=== PATIENT | male | born 1955 | race Caucasian/White ===

== ENCOUNTER 2016-06-13 22:36 | Inpatient (IN) | payer BC ==
[~2016-06-13] VITALS: Ht 182.9 cm; Wt 78.0 kg
[~2016-06-13 22:36] MED LIST: ACETAMINOPHEN-1 EAC1 ORAL; ACYCLOVIR400 MG ORAL; COUMADIN5 MG ORAL
[2016-06-13 22:55] VITALS: BP 148/62
[2016-06-13] MEDS ORDERED: Aspirin Baby 81mg ORAL ONE (23:15)
[2016-06-13] MEDS ORDERED: Ketorolac 30mg Inj IV ONE (23:15)
[2016-06-13 23:18] LABS: BASOPHILS % (AUTO) 1.4 % (0.0-2.0); EOSINOPHILS % (AUTO) 1.3 % (0.0-3.0); LYMPHOCYTES % (AUTO) 16.8 % (20.0-45.0); MEAN CORPUSCULAR HEMOGLOBIN 27.8 PG (27.0-31.0); MEAN CORPUSCULAR HGB CONC 31.8 G/DL (32.0-36.0); MEAN CORPUSCULAR VOLUME 88 FL (80-99); MEAN PLATELET VOLUME 7.7 FL (6.5-10.1); MONOCYTES % (AUTO) 19.7 % (1.0-10.0); NEUTROPHILS % (AUTO) 60.8 % (45.0-75.0); PLATELET COUNT 125 K/UL (150-450); RED BLOOD COUNT 4.28 M/UL (4.70-6.10); RED CELL DISTRIBUTION WIDTH 13.6 % (11.6-14.8); WHITE BLOOD COUNT 9.7 K/UL (4.8-10.8)
--- NOTE | 2016-06-13 23:27 | Emergency Room Report ---
History of Present Illness General Chief Complaint: Chest Pain Source: Patient Present Illness HPI This is a 60-year-old male with history of asthma. He presents with chief complaint of left-sided chest pain is been intermittent since Friday. Localized to the lateral left chest area. Radiate to the back. Is sharp and lancing in nature. It comes and goes. Initially described as tingling and burning. Now lancing. No trauma. Nothing made it better nothing made it worse. Denies any other complaint. Pain is 10 out of 10 when the pain comes on. Allergies: Coded Allergies: ACETAMINOPHEN (Verified Allergy, Severe, 04/28/13) n/v OXYCODONE (Verified Allergy, Severe, 04/28/13) n/v Patient History Past Medical History: see triage record, old chart reviewed, asthma Past Surgical History: none Pertinent Family History: none Social History: Denies: smoking Immunizations: other Reviewed Nursing Documentation: PMH: Agreed, PSxH: Agreed Nursing Documentation-PMH Hx Asthma: Yes Hx Cancer: Yes - left foot sarcoma Review of Systems Eye: Denies: blurred vision, eye pain ENT: Denies: ear pain, nose congestion, throat swelling Respiratory: Denies: cough, shortness of breath Cardiovascular: Reports: chest pain, Denies: palpitations Gastrointestinal: Denies: abdominal pain, diarrhea, nausea, vomiting Musculoskeletal: Denies: back pain, joint pain Skin: Denies: rash Neurological: Denies: headache, numbness Endocrine: Denies: increased thirst, increased urine Hematologic/Lymphatic: Denies: easy bruising All Other Systems: negative except mentioned in HPI Physical Exam Vital Signs Date Time Temp Pulse Resp B/P Pulse Ox O2 Delivery O2 Flow Rate FiO2 06/13/16 22:45 99.0 81 18 156/72 97 Room Air vitals with hypertension Sp02 EP Interpretation: reviewed, normal General Appearance: well appearing, no apparent distress, alert Head: normocephalic, atraumatic Eyes: bilateral eye EOMI, bilateral eye PERRL ENT: hearing grossly normal, normal pharynx Neck: full range of motion, supple, no meningismus Respiratory: chest non-tender, lungs clear, normal breath sounds, other - No rash Cardiovascular #1: regular rate, rhythm, no murmur Gastrointestinal: normal bowel sounds, non tender, no mass, no organomegaly, no bruit, non-distended Musculoskeletal: back normal, gait/station normal, normal range of motion Psychiatric: mood/affect normal Skin: warm/dry Medical Decision Making Diagnostic Impression: Primary Impression: Pulmonary embolism Qualified Codes: I26.99 - Other pulmonary embolism without acute cor pulmonale Additional Impression: Acute kidney injury (nontraumatic) ER Course Patient present with chest pain. He has a pulmonary embolism. Anticoagulations started with Lovenox. He has a history of postsurgical DVT. He was on Coumadin for one and a half year. It was stopped. He has no recent travel, surgery or immobilization. Denies any leg pain or swelling. Will admit for anticoagulations and further workup. EKG Diagnostic Results Rate: normal Rhythm: NSR ST Segments: no acute changes Rhythm Strip Diag. Results EP Interpretation: yes Rate: 75 Rhythm: NSR, no PVC's, no ectopy Chest X-Ray Diagnostic Results EP Interpretation: Yes Findings: no effusion, no pneumothorax, other - Left lower lobe infiltrate Number of Views: 1 CT/MRI/US Diagnostic Results CT/MRI/US Diagnostic Results : Imaging Test Ordered: CT chest Impression Red by radiologist. Positive for PE in the left lower lobe and lingula area. Last Vital Signs Date Time Temp Pulse Resp B/P Pulse Ox O2 Delivery O2 Flow Rate FiO2 06/13/16 22:55 98.5 80 17 148/62 97 Room Air Status: improved Disposition: ADMITTED INPATIENT Condition: Serious HUBERT MCCORD M.D. Jun 13, 2016 23:27
[2016-06-13 23:35] LABS: TROPONIN I < 0.30 ng/mL (<=0.30)
[2016-06-13 23:39] LABS: ALANINE AMINOTRANSFERASE 23 U/L (3-41); ALBUMIN/GLOBULIN RATIO 1.2 (1.0-2.7); ANION GAP 17 (5-15); ASPARTATE AMINO TRANSFERASE 26 U/L (5-40); CALCIUM 8.9 mg/dL (8.6-10.2); CARBON DIOXIDE 25 mEQ/L (20-30); CHLORIDE 96 mEQ/L (98-107); CREATININE 1.5 mg/dL (0.7-1.2); GLOMERULAR FILTRATION RATE 47.4 mL/min (>60); HEMOLYSIS 4; POTASSIUM 4.4 mEQ/L (3.4-4.9); SODIUM 138 mEQ/L (135-145); TOTAL PROTEIN 7.2 g/dL (6.6-8.7)
[2016-06-13 23:49] LABS: CKMB < 1.5 ng/mL (< 6.7)
[2016-06-13 23:55] VITALS: BP 102/59
[2016-06-14] VITALS (8 sets, daily range): BP systolic 109–140; BP diastolic 64–76
[2016-06-14] MEDS ORDERED: Enoxaparin 80mg Inj SUBQ ONE (01:00)
[2016-06-14] MEDS ORDERED: SINGULAIR10 MG ORAL (01:42)
[2016-06-14] MEDS ORDERED: ASPIRIN81 MG ORAL (01:42)
[2016-06-14] MEDS ORDERED: traMADol 50mg tab ORAL PRN (03:30)
[2016-06-14] MEDS ORDERED: Heparin 25,000u/D5W 500ml 500 ML IV SCH ×3 (03:45→22:15)
[2016-06-14] MEDS ORDERED: Heparin 5000 units/ml inj IV ONE ×2 (03:45→22:00)
[2016-06-14 04:10] LABS: BASOPHILS % (AUTO) 1.2 % (0.0-2.0); EOSINOPHILS % (AUTO) 0.7 % (0.0-3.0); LYMPHOCYTES % (AUTO) 18.5 % (20.0-45.0); MEAN CORPUSCULAR HEMOGLOBIN 27.6 PG (27.0-31.0); MEAN CORPUSCULAR HGB CONC 32.7 G/DL (32.0-36.0); MEAN CORPUSCULAR VOLUME 85 FL (80-99); MEAN PLATELET VOLUME 7.3 FL (6.5-10.1); MONOCYTES % (AUTO) 18.2 % (1.0-10.0); NEUTROPHILS % (AUTO) 61.4 % (45.0-75.0); PLATELET COUNT 114 K/UL (150-450); RED BLOOD COUNT 3.87 M/UL (4.70-6.10); RED CELL DISTRIBUTION WIDTH 13.3 % (11.6-14.8); WHITE BLOOD COUNT 8.5 K/UL (4.8-10.8)
--- NOTE | 2016-06-14 09:57 | Diagnostic Imaging Report ---
Indication: Chest pain Technique: Continuous helical transaxial imaging of the chest was obtained from the thoracic inlet to the upper abdomen during rapid intravenous contrast administration. Arterial phase of enhancement obtained. Coronal 2-D reformats were also obtained and maximum intensity projection images in multiple planes. Study obtained in a Siemens sensation [address] Total Dose length Product (DLP): [address] Dose Index Volume (CTDIvol): 13, 51, 23 mGy Comparison: None Findings: There is a filling defect involving the left lower lobe pulmonary artery branch as well as the lingula branch consistent with pulmonary embolus. Nonspecific patchy groundglass opacification of a portion of the lingula as well as left lower lobe are noted. There are some associated volume loss despite a small left pleural effusion. Some of the parenchymal opacification is due to atelectasis. Pulmonary infarction is not excluded. Small mediastinal nodes are present. Heart is unremarkable. Aorta is normal in appearance. The visualized part of the upper abdomen demonstrates an enlarged spleen. There is a hypodensity in the right lobe of the liver measuring about 1 cm nonspecific. There is a large partially enhancing hypodense mass in the right lobe of the liver measuring approximately 3.8 x 3.0 CM. This may be a hemangioma but is incompletely assessed on the current study. Within the mid and lower thoracic spine there is partial ossification of the anterior longitudinal ligament. Impression: Positive exam for pulmonary embolus involving the lingula branch and left lower lobe branches. Patchy left basilar atelectasis and a small pleural effusion. Additional groundglass opacities are nonspecific with a differential diagnosis including pulmonary infarction. Splenomegaly. 3.8 x 3.0 cm partially enhancing mass in the liver, nonspecific. This could be a hemangioma. 1 cm hypodensity in the liver nonspecific. [facility] has communicated the preliminary results to the Emergency Department. Their findings are largely concordant with this report. Critical value communication. Findings were discussed via telephone with Dr. Romero in the emergency department by [facility] physician Dr. Eamon Johnson at 06/14/16, 01:00 [facility] has communicated the preliminary results to the Emergency Department. Their findings are largely concordant with this report. The CT scanner at [facility] is accredited by the [employer] and the scans are performed using protocols designed to limit radiation exposure to as low as reasonably achievable to attain images of sufficient resolution adequate for diagnostic evaluation.
--- NOTE | 2016-06-14 11:09 | Diagnostic Imaging Report ---
Indication: Chest Pain Comparison: None A single view chest radiograph was obtained. Findings: Retrocardiac infiltrate and/or pleural effusion noted. Mild cardiomegaly is present without evidence of CHF. Right clavicle hardware noted. Impression: Left basilar pleural effusion and/or atelectasis/pneumonia.
[2016-06-14] MEDS ORDERED: HYDROmorphone 1mg/ml Carpuject IVP PRN ×2 (15:00→15:06)
[2016-06-14] MEDS ORDERED: Tylenol #3 tab (300mg/30mg) ORAL PRN (15:15)
[2016-06-14] MEDS ORDERED: Montelukast 10mg tablet ORAL SCH (16:30)
--- NOTE | 2016-06-14 23:38 | History and Physical Report ---
DATE OF ADMISSION: 06/14/2016 CHIEF COMPLAINT: Chest pain and pulmonary embolism. HISTORY OF PRESENT ILLNESS: The patient is a pleasant 60-year-old male. He has prior history of left lower extremity DVT approximately 10 years ago. He required a stent placement at that time, he was initially on Coumadin for over a year and then switched to baby aspirin. He has been doing well until Friday when he developed substernal chest pain on the left side. The pain persisted and it became severe and he developed worsening shortness of breath and presented to the emergency room. On evaluation there, CT pulmonary angio confirmed a pulmonary embolism in lingular branch of the left lower lobe. The patient has been started on heparin drip. He is now admitted. He denies any fever or chills. He did recently travel to [place] at end of May. He also has a brother who has a history of DVT after surgery. PAST MEDICAL HISTORY: Asthma. PAST SURGICAL HISTORY: Includes surgery, tonsillectomy, and foot surgery. CURRENT MEDICATIONS: Reconciled and reviewed. ALLERGIES: Oxycodone. SOCIAL HISTORY: Negative for tobacco, ethanol, or drugs. FAMILY HISTORY: Noncontributory. REVIEW OF SYSTEMS: General: No fevers or chills. HEENT: No headaches or visual changes. Cardiopulmonary: Positive chest pain and shortness of breath. Gastrointestinal: No nausea or vomiting Genitourinary: No urgency or frequency. Musculoskeletal: No joint pain or swelling. Neurologic: No evidence of seizures. PHYSICAL EXAMINATION: VITAL SIGNS: Temperature 98 degrees, blood pressure 130/76, pulse 80, respirations 20, and the patient is saturating 100% on two liters. GENERAL: The patient is well-developed male, in no apparent distress. HEART: Regular rate and rhythm. LUNGS: Clear. ABDOMEN: Soft, nontender, and nondistended. EXTREMITIES: Without clubbing, cyanosis, or edema. LABORATORY AND DIAGNOSTIC DATA: White count was 9, hemoglobin 11, hematocrit 37, and platelets of 125,000. D-dimer was 20,000. Sodium 138, potassium 4.4, chloride 96, bicarb 25, BUN 29, and creatinine 1.5 with glucose of 138. [address] pulmonary angio shows pulmonary embolism involving lingular branch of the left lower lobe, patchy left basilar atelectasis, and small pleural effusion, additional ground-glass opacities, nonspecific but differential includes pulmonary infarction. ASSESSMENT: This is a pleasant male with prior history of deep venous thrombosis associated with surgery admitted with a pulmonary embolism. 1. Pulmonary embolism. 2. Pain secondary to pulmonary embolism. 3. Respiratory insufficiency. 4. History of asthma. PLAN: 1. Heparin drip. 2. and pulmonary consultation. 3. Pain control. 4. Check a duplex of the legs. Hossein Beasley M.D. DR: Peggy JOB#: [id number] CC:
[2016-06-15] VITALS: BP 129/70
[2016-06-15] MEDS: Morphine Sulfate 2mg/ml Inj IVP PRN ×2 (00:01→08:08)
[2016-06-15 07:43] VITALS: BP 140/71
[2016-06-15] MEDS: Montelukast 10mg tablet ORAL SCH (08:09)
[2016-06-15] MEDS ORDERED: Milk of Magnesia 30ml Ud ORAL PRN (09:30)
[2016-06-15] MEDS: Docusate 250mg cap ORAL SCH ×2 (09:34→17:27)
--- NOTE | 2016-06-15 09:42 | General Progress Note ---
Assessment/Plan Problem List: (1) Asthma ICD Codes: J45.909 - Unspecified asthma, uncomplicated SNOMED: 448964354 (2) Pulmonary infarction ICD Codes: I26.99 - Other pulmonary embolism without acute cor pulmonale SNOMED: 85036280 (3) Pulmonary embolism ICD Codes: I26.99 - Other pulmonary embolism without acute cor pulmonale SNOMED: 67635064, [id number] Qualifiers: Qualified Codes: I26.99 - Other pulmonary embolism without acute cor pulmonale Status: stable, progressing Assessment/Plan start xarelto dc heparin drip pulm and heme eval check factor 5 decongestants Subjective ROS Limited/Unobtainable: No Constitutional: Reports: malaise, weakness HEENT: Reports: no symptoms Cardiovascular: Reports: no symptoms Respiratory: Reports: no symptoms Gastrointestinal/Abdominal: Reports: no symptoms Genitourinary: Reports: no symptoms Neurologic/Psychiatric: Reports: no symptoms Endocrine: Reports: no symptoms Hematologic/Lymphatic: Reports: no symptoms Allergies: Coded Allergies: ACETAMINOPHEN (Verified Allergy, Severe, 04/28/13) n/v OXYCODONE (Verified Allergy, Severe, 04/28/13) n/v All Systems: reviewed and negative except above Subjective c/o chest pain +sob. no bleeding stuffed up nose. . Objective Last 24 Hour Vital Signs Date Time Temp Pulse Resp B/P Pulse Ox O2 Delivery O2 Flow Rate FiO2 06/15/16 07:43 99.0 72 20 140/71 94 Nasal Cannula 2.0 06/15/16 04:00 66 06/15/16 00:00 98.2 72 16 129/70 98 Nasal Cannula 2.0 06/15/16 00:00 74 06/14/16 20:00 82 06/14/16 20:00 97.8 70 19 140/76 100 Nasal Cannula 2.0 06/14/16 16:00 53 06/14/16 16:00 97.5 56 20 128/70 96 Nasal Cannula 2.0 06/14/16 15:39 98.1 06/14/16 12:00 98.1 59 20 120/68 97 Nasal Cannula 1.5 06/14/16 12:00 56 Intake and Output 06/14/16 06/15/16 19:00 07:00 Intake Total 756.056 ml 642.184 ml Balance 756.056 ml 642.184 ml Intake Oral 500 ml 240 ml IV Total 256.056 ml 402.184 ml # Voids 2 Laboratory Tests 06/14/16 14:25: Activated Partial Thromboplast Time 49H 06/14/16 21:30: Activated Partial Thromboplast Time 52H 06/15/16 04:00: Activated Partial Thromboplast Time 69H Height (Feet): 6 Height (Inches): 0.00 Weight (Pounds): 172 General Appearance: WD/WN, alert Neck: supple Cardiovascular: normal rate, regular rhythm Respiratory/Chest: lungs clear Abdomen: normal bowel sounds, non tender, soft, no organomegaly Edema: no edema noted Arm (L), no edema noted Arm (R), no edema noted Leg (L), no edema noted Leg (R), no edema noted Pedal (L), no edema noted Pedal (R), no edema noted Generalized Lymphatic: normal anterior cervical (L), normal anterior cervical (R), normal axillary (L), normal axillary (R), normal inguinal (L), normal inguinal (R), normal other, normal posterior cervical (L), normal posterior cervical (R), normal submandibular (L), normal submandibular (R), normal supraclavicular (L), normal supraclavicular (R) ELISSA DEL CASTILLO Jun 15, 2016 09:42
[2016-06-15 11:37] VITALS: BP 131/66
[2016-06-15] MEDS ORDERED: Oxymetazoline 0.05% Na Spray 30ml NASAL PRN (13:00)
[2016-06-15 16:00] VITALS: BP 122/65
[2016-06-15] MEDS: Xarelto 15mg tab ORAL SCH (17:27)
[2016-06-15 20:00] VITALS: BP 125/66
[2016-06-16 00:15] VITALS: BP 137/75
[2016-06-16 04:00] VITALS: BP 135/75
--- NOTE | 2016-06-16 07:40 | General Progress Note ---
Assessment/Plan Problem List: (1) Asthma ICD Codes: J45.909 - Unspecified asthma, uncomplicated SNOMED: 356554478 (2) Pulmonary infarction ICD Codes: I26.99 - Other pulmonary embolism without acute cor pulmonale SNOMED: 08993965 (3) Pulmonary embolism ICD Codes: I26.99 - Other pulmonary embolism without acute cor pulmonale SNOMED: 10877483, [id number] Qualifiers: Qualified Codes: I26.99 - Other pulmonary embolism without acute cor pulmonale Assessment/Plan xarelto pulm and heme eval check factor 5 decongestants wean o2 Subjective ROS Limited/Unobtainable: No Constitutional: Reports: malaise, weakness HEENT: Reports: no symptoms Cardiovascular: Reports: chest pain Respiratory: Reports: no symptoms Gastrointestinal/Abdominal: Reports: no symptoms Genitourinary: Reports: no symptoms Neurologic/Psychiatric: Reports: no symptoms Endocrine: Reports: no symptoms Hematologic/Lymphatic: Reports: no symptoms Allergies: Coded Allergies: ACETAMINOPHEN (Verified Allergy, Severe, 04/28/13) n/v OXYCODONE (Verified Allergy, Severe, 04/28/13) n/v All Systems: reviewed and negative except above Subjective less chest pain no sob duplex not done yet. Objective Last 24 Hour Vital Signs Date Time Temp Pulse Resp B/P Pulse Ox O2 Delivery O2 Flow Rate FiO2 06/16/16 04:00 98.4 70 20 135/75 96 Room Air 06/16/16 03:44 64 06/16/16 00:15 98.6 66 20 137/75 97 Nasal Cannula 2.0 06/16/16 00:15 68 06/15/16 20:00 71 06/15/16 20:00 99.7 71 18 125/66 95 Nasal Cannula 06/15/16 16:00 99.5 71 19 122/65 98 Room Air 06/15/16 16:00 74 06/15/16 12:00 70 06/15/16 11:37 99.5 70 20 131/66 96 Nasal Cannula 2.0 06/15/16 08:00 71 06/15/16 07:43 99.0 72 20 140/71 94 Nasal Cannula 2.0 Intake and Output 06/15/16 06/16/16 19:00 07:00 Intake Total 352.2 ml 400 ml Balance 352.2 ml 400 ml Intake Oral 240 ml 400 ml IV Total 112.2 ml # Voids 2 5 # Bowel Movements 1 Height (Feet): 6 Height (Inches): 0.00 Weight (Pounds): 172 Objective General Appearance: WD/WN, alert Neck: supple Cardiovascular: normal rate, regular rhythm Respiratory/Chest: lungs clear Abdomen: normal bowel sounds, non tender, soft, no organomegaly Edema: no edema noted Arm (L), no edema noted Arm (R), no edema noted Leg (L), no edema noted Leg (R), no edema noted Pedal (L), no edema noted Pedal (R), no edema noted Generalized Lymphatic: normal anterior cervical (L), normal anterior cervical (R), normal axillary (L), normal axillary (R), normal inguinal (L), normal inguinal (R), normal other, normal posterior cervical (L), normal posterior cervical (R), normal submandibular (L), normal submandibular (R), normal supraclavicular (L), normal supraclavicular (R) ELISSA DEL CASTILLO Jun 16, 2016 07:40
[2016-06-16 07:53] VITALS: BP 141/80
[2016-06-16] MEDS: Montelukast 10mg tablet ORAL SCH (09:07)
[2016-06-16] MEDS: Xarelto 15mg tab ORAL SCH ×2 (09:07→18:17)
[2016-06-16] MEDS: Docusate 250mg cap ORAL SCH ×2 (09:07→18:00)
[2016-06-16 12:25] VITALS: BP 128/74
[2016-06-16 12:45] LABS: CALCIUM 8.9 mg/dL (8.6-10.2); CREATININE 1.3 mg/dL (0.7-1.2); GLOMERULAR FILTRATION RATE 55.9 mL/min (>60); POTASSIUM 4.9 mEQ/L (3.4-4.9)
[2016-06-16 16:00] VITALS: BP 141/81
[2016-06-16 16:14] LABS: BASOPHILS % (AUTO) 1.5 % (0.0-2.0); EOSINOPHILS % (AUTO) 1.5 % (0.0-3.0); LYMPHOCYTES % (AUTO) 22.8 % (20.0-45.0); MEAN CORPUSCULAR HEMOGLOBIN 27.2 PG (27.0-31.0); MEAN CORPUSCULAR HGB CONC 31.6 G/DL (32.0-36.0); MEAN CORPUSCULAR VOLUME 86 FL (80-99); MEAN PLATELET VOLUME 5.8 FL (6.5-10.1); NEUTROPHILS % (AUTO) 59.2 % (45.0-75.0); PLATELET COUNT 142 K/UL (150-450); RED BLOOD COUNT 4.04 M/UL (4.70-6.10); RED CELL DISTRIBUTION WIDTH 13.1 % (11.6-14.8); WHITE BLOOD COUNT 6.8 K/UL (4.8-10.8)
[2016-06-16 18:44] LABS: ANISOCYTOSIS 1+; BAND NEUTROPHILS % (MANUAL) 1 % (0-8); EOSINOPHILS % (MANUAL) 2 % (0-3); HYPOCHROMASIA 1+; LYMPHOCYTES % (MANUAL) 29 % (20-45); NEUTROPHILS % (MANUAL) 59 % (45-75); TOTAL CELLS COUNTED 100
[2016-06-16 18:45] LABS: BASOPHILS % (MANUAL) 0 % (0-2); PLATELET ESTIMATE DECREASED; PLATELET MORPHOLOGY NORMAL
[2016-06-16 18:53] LABS: PATH BLOOD SMEAR/OMC SENT TO PATHOLOGIST
--- NOTE | 2016-06-16 19:50 | Cardiology Report ---
APPROVED REPORT EKG Measurement Heart [id number] AK 176P [id number] Normal sinus rhythm Right superior axis deviation Abnormal ECG
[2016-06-16 20:00] VITALS: BP 122/58
[2016-06-17] VITALS: BP 130/72
--- NOTE | 2016-06-17 03:38 | Consultation ---
DATE OF CONSULTATION: 06/16/2016 HEMATOLOGY/ONCOLOGY CONSULTATION CONSULTING PHYSICIAN: Monica Rodriguez M.D. HISTORY OF PRESENT ILLNESS: The patient is an extremely pleasant male born on 1955. The patient's hematologic/oncologic history goes back to 2004. At this time, the patient noted a density/mass along the top of his foot. This was evaluated and he was subsequently referred to Dr. Hylton of Orthopedic Oncology. The patient did undergo an initial biopsy, which was diagnostic for sarcoma at [facility]. Subsequently, the patient did undergone full resection of the mass at [facility] by Dr. Hylton. The patient did have followups approximately five years, at that time with no evidence of recurrence of disease. Approximately one month after his surgery in 2004 at the time of suture removal, the patient was noted to have severe left-sided foot edema, did undergo a stat duplex at [facility], which demonstrated evidence of extensive thrombosis of his whole leg going from the calf all the way to the femoral area. The patient was admitted for five days at [facility], was treated with IV heparin and subsequently initiated on Coumadin. The patient was treated with Coumadin for approximately one and a half years. The patient subsequently was initiated on aspirin. In 2012, the patient was evaluated by an interventional radiologist in [place], did undergo venoplasty as well as stent placement of the apparent iliac vein on the left side as well as tPA procedures. This significantly improved the patient's pain. Post this procedure, the patient was treated with 30 days of Lovenox and subsequently was placed back on Coumadin for approximately six months. Since 2013, however, the patient has been on aspirin single agent. It should be noted that the patient's brother at age 41 did have a history of post knee arthroscopy, DVT in 2012 as well. No generic testing has been done in this regard. The patient's brother has also had a history of prostate cancer at age 54. The patient's maternal aunts multiple have history of cancers, questionable ovarian. The patient's grandmother on the maternal side also has had a history of unknown cancer at older age as well. Since 2013, the patient has been extensive state of health. Unfortunately, his some years ago from myocardial infarction at age 53. The patient apparently was in extensive state of health a week prior to this consultation. The patient had his routine jog on Friday morning. The patient noted to have some chest pressure on the left side. This is over the next ensuing day, this got significantly worse. On the third day, he decided to come in to the hospital for further evaluation. Upon evaluation in the emergency room, the patient did undergo an initial chest x-ray and subsequently CT pulmonary angiogram on 06/13/2012. This study demonstrated filling defect involving the left lower lobe pulmonary artery branch as well as lingula branch consistent with pulmonary embolus, nonspecific patchy ground-glass opacification of a portion of the lingula as well as left lower lobe was noted. There was some associated volume loss despite a small lymph node effusion, some of the parenchymal opacification was due to atelectasis. Pulmonary infarction was not excluded. Small mediastinal nodes were noted. Heart was unremarkable. Aorta was of normal appearance. The visualized part of the upper abdomen demonstrated an enlarged spleen with hypodensity in the right lobe of the liver measuring approximately 1 cm, which was nonspecific. There was enlarged partially enhancing hypodense mass in the right lobe of the liver measuring approximately 3.8 x 3 cm, which might be a hemangioma, but this was incompletely noted in this study. Within the mid and lower thoracic spine, there was partial opacification of the anterior longitudinal ligament as well. The patient did undergo venous duplex of bilateral lower extremities on 06/16/2016, which reportedly was negative as well. The patient's laboratory data as of 06/14/2016 noted a white count of 8.5 with hemoglobin 10.7 and platelet count of 114,000. The patient did have noted lymphopenia, approximately 18% lymphocytes, 61% neutrophils, and elevated monocyte count of approximately 18%. The patient's laboratory data otherwise did demonstrate a creatinine, which is mildly elevated at 1.5. PAST MEDICAL HISTORY: History of sarcoma as noted above, history of DVT left lower extremity, and history of asthma. PAST SURGICAL HISTORY: History of tonsillectomy and sarcoma restriction, left foot. SOCIAL HISTORY: The patient denies any alcohol or drugs. 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 FAMILY HISTORY: Multiple maternal aunts with cancers. Maternal grandmother with cancer of unknown, questionable PORTAL ADMINISTRATOR versus breast. Brother in his early 50s with history of prostate cancer. Brother in early 50s with history of DVT post knee surgery. REVIEW OF SYSTEMS: General: The patient denies any headache, vision change, or hearing loss. Pulmonary: The patient does have history of asthma. Cardiovascular: The patient does complain of left-sided pleuritic chest pain. Gastrointestinal: The patient denies any abdominal pain. No blood in the stool. The patient has had colonoscopy approximately three years ago. Genitourinary: The patient has been followed up with urologist. Neurologic: The patient denies any focal weakness or numbness. Skin: The patient denies any bruising or petechiae. PHYSICAL EXAMINATION: GENERAL: The patient is a well-developed and well-nourished gentleman, in no acute distress. VITAL SIGNS: stable. HEAD AND NECK: Sclerae anicteric CHEST: Clear to auscultation. CARDIAC: Regular rate. S1 and S2. ABDOMEN: Soft, nontender, and nondistended. No hepatosplenomegaly. EXTREMITIES: No cyanosis or clubbing. There is some edema of the left lower extremity. There is a surgical scar over the left foot region. LABORATORY DATA: Laboratory as well as investigations as noted in my history of present illness. ASSESSMENT AND PLAN: 1. Acute pulmonary embolus, etiology unclear in light of the patient's family history. The patient is to be ruled out for primary hypercoagulable state, underlying malignancy however seems to be ruled out. The patient also had a history of sarcoma. At this point in time, the patient would like to have all his hypercoagulable state workup as an outpatient basis. The patient is status post IV heparin, currently on Xarelto, which I fully agree with. The patient is aware of risks and benefits of anticoagulation, especially Xarelto and bleeding risk. The patient wants to proceed with Xarelto. 2. History of sarcoma in light of current deep venous thrombosis, the patient needs to be evaluated and be ruled out for metastatic disease, he would like to do this as outpatient basis at an outside facility. 3. Liver lesion. He is to have MRI of the liver as well as CAT scan as an outpatient. 4. Monocytosis, questionable etiology of SHAI-2 gene, MPL gene mutation. PCR for BCR-ABL will be evaluated as outpatient as well. Underlying myeloproliferative disease needs to be done. 5. Splenomegaly, questionable etiology. Needs to be evaluated on outpatient basis. 6. Liver lesion as noted above. 7. Family history of multiple members with cancer. The patient needs to have myRisk panel to fully be ruled out for underlying genetic disorders. I thank you for this consultation. Monica Rodriguez M.D. DR: Dennis JOB#: [id number] CC:
[2016-06-17 04:17] VITALS: BP 128/71
[2016-06-17 08:00] VITALS: BP 145/88
[2016-06-17 08:22] LABS: BASOPHILS % (AUTO) 1.3 % (0.0-2.0); EOSINOPHILS % (AUTO) 2.9 % (0.0-3.0); LYMPHOCYTES % (AUTO) 24.4 % (20.0-45.0); MEAN CORPUSCULAR HEMOGLOBIN 27.4 PG (27.0-31.0); MEAN CORPUSCULAR HGB CONC 32.1 G/DL (32.0-36.0); MEAN CORPUSCULAR VOLUME 85 FL (80-99); MEAN PLATELET VOLUME 5.9 FL (6.5-10.1); MONOCYTES % (AUTO) 15.7 % (1.0-10.0); NEUTROPHILS % (AUTO) 55.8 % (45.0-75.0); PLATELET COUNT 146 K/UL (150-450); RED BLOOD COUNT 4.04 M/UL (4.70-6.10); RED CELL DISTRIBUTION WIDTH 12.9 % (11.6-14.8); WHITE BLOOD COUNT 6.7 K/UL (4.8-10.8)
[2016-06-17 08:26] LABS: CALCIUM 8.8 mg/dL (8.6-10.2); CREATININE 1.3 mg/dL (0.7-1.2); GLOMERULAR FILTRATION RATE 55.9 mL/min (>60); POTASSIUM 4.8 mEQ/L (3.4-4.9)
[2016-06-17] MEDS: Docusate 250mg cap ORAL SCH (09:00)
[2016-06-17] MEDS: Xarelto 15mg tab ORAL SCH (09:15)
[2016-06-17] MEDS: Montelukast 10mg tablet ORAL SCH (09:15)
[2016-06-17] MEDS ORDERED: XARELTO15 MG ORAL (11:37)
--- NOTE | 2016-06-18 03:58 | Discharge Summary ---
DATE OF ADMISSION: 06/14/2016 DATE OF DISCHARGE: 06/17/2016 ADMISSION DIAGNOSIS: Pulmonary embolism. DISCHARGE DIAGNOSIS: Pulmonary embolism. HOSPITAL COURSE: The patient is a very pleasant male. He has a prior history of DVT, presented with complaints of chest pain and shortness of breath. He had a CT angiogram that was positive for a pulmonary embolism. He was admitted. He was started initially on intravenous heparin and then converted to Xarelto. He had initial workup for hypercoagulable state that will be completed as an outpatient. On discharge, the patient is doing well. He had minimum pain. His saturations were normal on room air. He will be discharged, has been instructed to follow up in one week with his PMD and the oncologist/audio tape librarian to complete his hypercoagulable workup. DISCHARGE MEDICATIONS: Please see discharge medication list for discharge medications. DIET: Regular diet. ACTIVITIES: Ad mickey. Hossein Beasley M.D. DR: Dragan JOB#: [id number] CC:
--- NOTE | 2016-06-18 15:59 | Cardiology Report ---
APPROVED REPORT EXAM: Two-dimensional and M-mode echocardiogram with Doppler and color Doppler. INDICATION Tachycardia M-Mode DIMENSIONS IVSd1.5 (0.7-1.1cm)Left Atrium (MM)3.6 (1.6-4.0cm) LVDd4.8 (3.5-5.6cm)Aortic Root3.9 (2.0-3.7cm) PWd1.1 (0.7-1.1cm)Aortic Cusp Exc.1.9 (1.5-2.0cm) LVDs3.2 (2.5-4.0cm) PWs1.3 cm Technically difficult study due to poor acoustic windows. Normal left ventricular chamber size, systolic function and wall motion. Normal RV function. Left ventricular ejection fraction estimated to be 50-55%. Mild left ventricular hypertrophy. Large posterior plural effusion. All other cardiac chamber sizes are within normal limits. Mild focal aortic valve sclerosis with adequate cusp excursion. Mildly thickened mitral valve leaflets with normal excursion. Mild mitral annulus and aortic root calcification. Pulmonic valve not well visualized. Normal tricuspid valve structure. IVC dilated at 1.7cm with physiologic collapse. A color flow and spectral Doppler study was performed and revealed: Trace aortic regurgitation. Trace mitral regurgitation. Mitral diastolic velocities suggest reduced left ventricular relaxation (Grade I). Trace tricuspid regurgitation. Tricuspid systolic velocities suggests peak right ventricular systolic pressure of 2mmHg.
--- NOTE | 2016-06-23 11:46 | Diagnostic Imaging Report ---
APPROVED REPORT CPT Code: 50506 Present Symptoms Lower Extremity Pain: Bilateral BILATERAL: Imaging reveals a patent deep venous system bilaterally. There is no evidence of thrombus within the femoral, popliteal or tibial segments. The greater saphenous veins are also within normal limits. Doppler indicates normal spontaneous flow within these segments.
== END 2016-06-17 13:25 | disposition home or self-care (01) | DRG 176 ==
LOC: EMR 22:59 → 2E 06-14 01:23 → EDBEDREQ 06-14 01:24 → 2E 06-14 03:46
DX: I26.99 Other pulmonary embolism without acute cor pulmonale (principal); R16.1 Splenomegaly, not elsewhere classified; J45.909 Unspecified asthma, uncomplicated; D72.821 Monocytosis (symptomatic); K76.9 Liver disease, unspecified; Z79.82 Long term (current) use of aspirin; Z86.718 Personal history of other venous thrombosis and embolism; Z80.9 Family history of malignant neoplasm, unspecified
CPT/HCPCS: 36415; 71010; 71275; 80048; 80053; 81241; 82550; 82553; 84484; 85007; 85025; 85060; 85379; 85730; 93005; 93306; 93970; J2405